=== PATIENT | female | born 1965 | race Caucasian/White ===

== ENCOUNTER 2023-03-12 13:50 | Outpatient (CLI) | payer BC | END 2023-03-12 13:51 | disposition home or self-care (01) | LOC: CSHCP 13:50 | PROVIDERS: ATTEND Family Medicine | DX: R06.02 Shortness of breath (principal); J44.9 Chronic obstructive pulmonary disease, unspecified | CPT/HCPCS: 94060; 94664; 94726; 94729; 94760 ==